=== PATIENT | female | born 1985 | race Caucasian/White ===

== ENCOUNTER 2016-12-15 10:35 | Emergency (ER) | payer BC, OTHER ==
[2016-12-15] MEDS ORDERED: NORMAL SALINE 1,000 ML IV ONE ×2 (10:53→13:01)
[2016-12-15] MEDS ORDERED: KETOROLAC TROMETHAMINE 30 MG/ML VIAL IV ONE (10:53)
[2016-12-15] MEDS ORDERED: ONDANSETRON HCL/PF 2 MG/ML VIAL IV ONE ×2 (10:55→12:16)
--- OUTSIDE RECORDS SUMMARY | 2016-12-15 11:00 | XMS REPORT | Continuity of Care Document ---
:1985 Author [employer] [place] [address] Phone [phone] Care Team Providers Name Role Phone Kenny Gurrola Primary Care Provider [phone] Active Allergies and Adverse Reactions Allergen Noted Date Severity Reactions Comments Dilaudid 05/08/2010 Nausea And Vomiting Penicillins 04/06/2010 Medium Hives Current Medications Always verify current medications with the patient because some medications mayno longer be current as of this document. Prescription Sig. Disp. Refills Start Date End Date Status Multiple Take by mouth. Active Vitamins-Minerals (WOMENS MULTI VITAMIN & MINERAL) TABS cetirizine (ZYRTEC) 10 MG Take 10 mg by Active tablet mouth as needed. ibuprofen (MOTRIN) 800 MG Take 1 Tab by 60 Tab 12 09/20/2016 Active tablet mouth every 8 hours as needed. oxyCODONE-acetaminophen Take 1 Tab by 30 Tab 0 09/20/2016 Active (PERCOCET) 5-325 MG per mouth every 3 tablet hours as needed. Active Problems Problem Noted Date 09/17/2016 ADD (attention deficit disorder) 08/13/2010 Resolved Problems Problem Noted Date Resolved Date Breech presentation 01/31/2014 10/10/2014 Paronychia of toe 04/24/2010 05/22/2012 Most Recent Encounters Date Type Specialty Providers Description 09/24/2016 LINING SEWER Doc 09/23/2016 Encounter 09/21/2016 Encounter 09/17/2016 Surgery Obstetrics Sujey Vance MD SECTION 09/16/2016 Anesthesia Event Obstetrics Yovana Baig MD Immunizations Name Dates Previously Given Next Due (3 Years +) Influenza Vacc Preservative Free 06/19/2012,06/19/2012 06/19/2013 (3 Years +) Influenza Vacc Quadrivalent 05/15/2016,06/23/2015 Preservative Free(PREFILLED / SDV) Influenza (whole) 05/04/2014 Tdap (Adacel, Boostrix, >7 years, NOS) 02/02/2014 Social History Tobacco Use Types Packs/Day Years Used Date Never Smoker Smokeless Tobacco: Never Used Alcohol Use Drinks/Week oz/Week Comments Yes Last Filed Vital Signs Vital Sign Reading Time Taken Blood Pressure 128/78 09/20/2016 2:42 PM [employer] Pulse 71 09/20/2016 2:42 PM [employer] Temperature 36.8 C (98.2 F) 09/20/2016 2:42 PM [employer] Respiratory Rate 18 09/20/2016 9:06 AM [employer] Height 1.956 m (6' 5") 09/17/2016 9:59 AM [employer] Weight 103.42 kg (228 lb) 09/17/2016 9:59 AM [employer] Body Mass Index 27.03 09/17/2016 9:59 AM [employer] Oxygen Saturation 98% 09/17/2016 2:34 PM [employer] Plan of Care Health Maintenance Due Date Last Done Comments [facility] Cervical Cancer 2005 Screening [facility] Influenza 03/25/2017 05/15/2016, Additional history exists 06/23/2015, 05/04/2014 [facility] Dtap/Tdap/Td 02/03/2024 02/02/2014 Vaccines (2 - Td) [facility] Hmt Zoster (#1) 2044 Procedures from Last 3 Months Procedure Name Priority Date/Time Associated Diagnosis Comments SECTION 09/17/2016 11:40 AM [employer] Previous delivery, unspecified as to episode of care or not applicable(654.20) Special Needs section Results from Last 3 Months Type and Screen (09/17/2016 10:55 AM) Component Value Range Ab Scrn Negative ABORh AB Positive Specimen Blood CBC with Automated Differential (09/17/2016 10:55 AM) Component Value Range WBC 7.3 4.5-11.0 x10.e3/uL RBC 3.73(L) 4.00-5.20 x10.e6/uL Hemoglobin 12.0 12.0-16.0 g/dL Hematocrit 34.8(L) 36.0-46.0 % MCV 93.3 80.0-100.0 fL RDW 12.9 11.0-15.5 % Platelets 203 150-400 x10.e3/uL nRBC 0.0 0.0-0.0 /100 WBC Neutrophils Absolute 5.21 1.80-7.70 x10.e3/uL Lymphocytes Absolute 1.51 1.00-4.80 x10.e3/uL Monocytes Absolute 0.46 0.20-0.80 x10.e3/uL Eosinophils Absolute 0.04 0.00-0.70 x10.e3/uL Basophils Absolute 0.01 0.00-0.20 x10.e3/uL Immature Granulocytes, Absolute 0.03 0.00-0.09 x10.e3/uL Immature Granulocytes 0.4 0.0-0.5 % Neutrophils Percent 71.8 43.0-76.0 % Lymphocytes Percent 20.8 17.0-45.0 % Monocytes Percent 6.3 3.0-11.0 % Eosinophils Percent 0.6 0.0-7.0 % Basophils Percent 0.1 0.0-2.0 % Specimen Blood
--- NOTE | 2016-12-15 11:03 | ERNOTE ---
ER Female HPI Date of Service: 12/15/16 Stated Complaint: KIDNEY INFECTION Time Seen by Provider: 12/15/16 10:45 Source: patient Exam Limitations: no limitations Immunizations: IMMUNIZATION HX History of Influenza Vaccine Yes Hx Pneumococcal Vaccination Yes Allergies/Adverse Reactions: Allergies hydromorphone [From Dilaudid] Allergy (Verified 12/15/16 10:44) penicillamine Allergy (Verified 12/15/16 10:44) Home Medications: HOME MEDICATIONS Vit37/Iron/Folic Acid [Prenata Chewable Tablet] 1 each PO DAILY [Last Taken Unknown] oxyCODONE HCL/ACETAMINOPHEN [Percocet 5 MG/325 MG] 1 tab PO Q6H PRN #20 tablet 12/15/16 [Last Taken Unknown] - History of Present Illness Narrative: Patient presents to the ED for right flank pain. She is 3 months . Breast feeding. She has had pain like this before with a uti. This began this am around 4:30 am. Right flank. No abdominal pain. Nausea and vomiting with it. No fevers. No other Sx. Pain right flank waxes and wanes, can be severe. No pain down the leg. No trauma. tried the hot tub at the hotel but did not help. Has an US during for the same thing but no kidney stone found. From OOT. Nothing makes it better or worse. Timing: Present: constant Quality: Present: sharpness Onset Location: Present: right flank. Absent: RLQ, LLQ, periumbilical, suprapubic, vaginal Radiation: Present: none Activities at Onset: Present: none Modifying Factors - (Improves): Present: other - none Modifying Factors - (Worsens): Present: other - none Associated Symptoms: Present: nausea, vomiting. Absent: fever/chills, abdominal pain, dysuria, urinary frequency, loss of bladder control, low back pain Prior Treatment: Absent: recently seen Review of Systems - Review of Systems Constitutional: Absent: fever Respiratory: Absent: no symptoms reported, shortness of breath Cardiology: Absent: no symptoms reported, chest pain Gastrointestinal/Abdominal: Present: nausea, vomiting Genitourinary: Present: other - she relates that with her last kidney infection she had no uriary Sx either, only pain. Absent: frequency, pain Musculoskeletal: Present: other - right flank pain Skin: Absent: rash Neurological: Present: no symptoms reported - Patient's Past Medical History Patient History - Medical: No pertinent hx Patient History - Cardiac/Respiratory: No pertinent hx Patient History - Cancer: No Hx of Cancer Patient History - Surgical Procedures: Patient History - Other: None - Social History Living Situations: home Psych History: No pertinent hx Alcohol Use: none Drug Use: none - Immunizations Hx Pneumococcal Vaccination: Yes History of Influenza Vaccine: Yes Physical Exam - Physical Exam General Appearance: Present: wd/wn, alert Eye Exam: Normal inspection: bilateral Ears, Nose, Throat: Present: normal ENT inspection Neck: Present: other - trachea midline Respiratory: Present: no respiratory distress, normal breath sounds, no accessory muscle use, lungs clear Cardiovascular/Chest: Present: regular rate, rhythm, no murmur Gastrointestinal/Abdominal: Present: normal bowel sounds, nontender, nondistended, soft, no organomegaly. Absent: tenderness Back Exam: Present: normal inspection, normal range of motion, CVA tenderness (R ) Extremity Exam: Present: normal inspection, normal range of motion. Absent: decreased range of motion Neurological Exam: Present: alert, normal mood/affect, no motor/sensory deficits , rn primary care II-XII nml as tested Skin Exam: Present: normal color, warm/dry. Absent: skin rash ED Progress - Results and Orders Patient's Lab Results:: I have reviewed the patient's lab results. - Vital Signs Patient's Vital Signs:: I have reviewed the patient's vital signs. Vital Signs: Vital Signs 12/15/16 10:38 Temperature 36.7 C Pulse Rate 63 Respiratory 12 Rate Blood Pressure 131/78 O2 Sat by Pulse 96 Oximetry - CT/Ultrasound CT/Ultrasound Narrative: CT report reviewed. 3mm stone right UVJ. - Progress/Reassessment Chief Complaint: Genitourinary Problem Progress:: Improved Progress Note-Subjective: 12/15/16 13:08 Patient improved. I discussed the case with Dr Manzanares at [facility] (where she will follow-up). She feels like going home. no suggestion of pyelo, sepsis or toxicity. No breast feeding while taking percocet discussed. She is to be NPO with urology f/u tomorrow. I discussed warning signs and reasons to return as well as the need for close f/u. Risks > benefits for Flomax in breast feeding. Patient states she can take percocet without difficulty. 12/15/16 13:16 Departure Clinical Impression: Kidney stone - Departure Disposition: Home self-care Condition: Stable Instructions: Kidney Stones, [id number] Additional Instructions: Dr Manzanares will see you tomorrow, call in the morning. Please eat or drink nothing after midnight. No driving or with percocet. Return for fever, increased pain or if your condition worsens or changes in any way. Prescriptions: oxyCODONE HCL/ACETAMINOPHEN [Percocet 5 MG/325 MG] 1 tab PO Q6H PRN #20 tablet PRN Reason: Pain
[2016-12-15] MEDS ORDERED: ONDANSETRON HCL/PF 2 MG/ML VIAL ONE (11:10)
[2016-12-15] MEDS ORDERED: KETOROLAC TROMETHAMINE 30 MG/ML VIAL ONE (11:10)
[2016-12-15 11:13] LABS: Hematocrit 38.5 % (37.0-47.0); Hemoglobin 13.5 gm/dL (12.5-16.0); Mean Corpuscular Hemoglobin 31.5 pg (27-31); Mean Corpuscular Hgb Conc 35.1 g/dl (32-36); Neutrophil # 7.5 K/mm3 (1.3-6.0); Neutrophil % 82.5 % (42-75.0); Platelet Count 238 K/mm3 (150-450); Red Blood Count 4.28 M/mm3 (4.2-5.4); Red Cell Distribution Width 12.1 % (11.5-14.0); White Blood Count 9.1 K/mm3 (4.0-10.5)
[2016-12-15 11:20] LABS: Anion Gap 14.7 mmol/L (6.8-13.8); BUN/Creatinine Ratio 19.1 (9.0-21.6); Calcium * 9.2 mg/dL (7.9-10.9); Carbon Dioxide 26.5 mmol/L (24-32.6); Estimated Creat Clear 99.2; Potassium 4.2 mmol/L (3.4-4.6)
[2016-12-15 11:43] LABS: Urine Appearance Slightly Cloudy; Urine Bilirubin Negative (NEGATIVE); Urine Blood 10 /ul (NEGATIVE); Urine Color Yellow; Urine Ketone 5 mg/dL (NEGATIVE)
[2016-12-15 11:44] LABS: Urine Bacteria None Seen; Urine Nitrite Negative (NEGATIVE); Urine Protein Negative (NEGATIVE); Urine RBC 0-5 /hpf (0-5); Urine Specific Gravity 1.015 SP.GR. (1.005-1.010); Urine Urobilinogen Normal (NORMAL); Urine WBC 0-5 /hpf (0-5); Urine pH 8.5 pH (5.0-7.0)
[2016-12-15] MEDS ORDERED: oxyCODONE HCL/ACETAMINOPHEN 1 TAB TABLET PO ONE (13:26)
[2016-12-15] MEDS ORDERED: oxyCODONE HCL/ACETAMINOPHEN 1 TAB TABLET ONE (13:33)
[2016-12-15 13:46] VITALS: BP 122/98
== END 2016-12-15 14:08 | disposition home or self-care (01) ==
LOC: ER 10:35
DX: N20.0 Calculus of kidney (principal)